=== PATIENT | female | born 1985 | race Caucasian/White ===

== ENCOUNTER 2016-08-22 03:48 | Emergency (ER) | payer SELFPAY ==
[~2016-08-22] VITALS: Ht 175.3 cm; Wt 72.6 kg
[2016-08-22] MEDS ORDERED: ADDERAL20 MG ORAL (04:01)
[2016-08-22] MEDS ORDERED: XANAX1 MG ORAL (04:01)
[2016-08-22] MEDS ORDERED: CELEXA20 MG ORAL (04:01)
[2016-08-22 04:11] VITALS: BP 107/67
[2016-08-22 04:41] VITALS: BP 1/1
--- NOTE | 2016-08-22 04:54 | Emergency Room Report ---
History of Present Illness General Chief Complaint: Medication Refill Source: Patient Present Illness [facility] The patient is a 31-year-old female presented for medication refill. Patient stated that she had run out of her Xanax. The patient had been previously prescribed Xanax by her psychiatrist. Patient states she has prior history of PTSD. Patient stated that she misplaced her last 3 medications. She states she 's been on multiple medications in the past. She reports having multiple psychiatric medication allergies. Allergies: Uncoded Allergies: ANTI PSYCHOTIC (Allergy, Unknown, 08/22/16) Patient History Past Medical History: see triage record Last Menstrual Period: August Reviewed Nursing Documentation: PMH: Agreed, PSxH: Agreed Nursing Documentation-PMH History Of Psychiatric Problem: Yes - PTSD,MOOD DISORDER Review of Systems All Other Systems: negative except mentioned in HPI Physical Exam Vital Signs Date Time Temp Pulse Resp B/P Pulse Ox O2 Delivery O2 Flow Rate FiO2 08/22/16 03:53 97.5 101 18 107/67 97 Room Air Sp02 EP Interpretation: reviewed, normal General Appearance: alert/responsive, no apparent distress, GCS 15, non-toxic Head: atraumatic Eyes: PERRL, lids + conjunctiva normal ENT: hearing intact, no angioedema Neck: supple/symm/no masses, no meningismus Respiratory: effort normal, no wheezing, chest symmetrical Cardiovascular: regular rate, rhythm, no edema Cardiovascular #2: 2+ carotid (R), 2+ carotid (L), 2+ dorsalis pedis (R), 2+ dorsalis pedis (L) Gastrointestinal: non-tender, no mass, non-distended, no rebound/guarding, normal bowel sounds Musculoskeletal: gait & station normal, strength & tone normal, normal ROM, non -tender Neurologic: normal inspection, CN II-XII intact, oriented x3, sensory intact, normal speech Psychiatric: normal inspection, judgment & insight normal, memory normal Skin: no rash, well hydrated Lymphatic: normal inspection Medical Decision Making Diagnostic Impression: Primary Impression: Anxiety ER Course Patient presented for medication refill. The patient was noted to have a recent medications prescribed by her psychiatrist. This was noted on [facility] report. Patient was advised to followup with her psychiatrist for refills of her medications. I felt it was inappropriate to give the patient psychiatric medications at this time. Last Vital Signs Date Time Temp Pulse Resp B/P Pulse Ox O2 Delivery O2 Flow Rate FiO2 08/22/16 04:41 05/1908/22/16 04:11 97.5 100 18 97 Room Air Status: improved Disposition: HOME, SELF-CARE Condition: Stable Referrals: Mental health professional 1-2 days NON PHYSICIAN (PCP) Patient Instructions: Posttraumatic Stress Disorder Vasquez Allen Aug 22, 2016 04:54
== END 2016-08-22 04:20 | disposition home or self-care (01) ==
LOC: EMR 04:15
DX: F41.9 Anxiety disorder, unspecified (principal); F43.10 Post-traumatic stress disorder, unspecified; F39 Unspecified mood [affective] disorder; Z76.0 Encounter for issue of repeat prescription
CPT/HCPCS: 99282